=== PATIENT | female | born 1975 | race Two or more races ===

== ENCOUNTER 2018-02-03 16:01 | Emergency (ER) | payer MEDICAID ==
[~2018-02-03] VITALS: Ht 144.8 cm; Wt 73.9 kg
[2018-02-03] MEDS ORDERED: KETOROLAC 30 MG/1 ML ONE (16:56)
[2018-02-03] MEDS ORDERED: KETOROLAC 30 MG/1 ML IM ONE (17:00)
[2018-02-03 17:08] LABS: ALANINE AMINOTRANSFERASE 23 U/L (12-78); ALBUMIN 3.5 g/dL (3.4-5.0); CALCIUM 8.9 mg/dL (8.5-10.1); CHLORIDE 108 mmol/L (98-107); CREATININE 0.77 mg/dL (0.55-1.02)
[2018-02-03 17:12] LABS: ALKALINE PHOSPHATASE 62 U/L (45-117); ANION GAP 10 mmol/L (5-15); BILIRUBIN,TOTAL 0.3 mg/dL (0.2-1.0); TOTAL PROTEIN 7.7 g/dL (6.4-8.2)
[2018-02-03 17:17] LABS: MEAN CORPUSCULAR HEMOGLOBIN 21.6 pg (27.0-34.8); MEAN CORPUSCULAR HGB CONC 31.2 g/dL (32.4-35.8); MEAN CORPUSCULAR VOLUME 69.3 fL (80-100); MEAN PLATELET VOLUME 8.1 fL (7.4-10.4); PLATELET COUNT 592 x10^3/uL (130-400); RED BLOOD COUNT 4.38 x10^6/uL (3.82-5.3); RED CELL DISTRIBUTION WIDTH 19.1 % (9.6-15.2)
[2018-02-03 17:34] LABS: MD YES
[2018-02-03 17:34] LABS: MICROSCOPIC NOT IND
[2018-02-03 17:36] LABS: CULTURE INDICATED? NO
[2018-02-03 17:47] LABS: ANISOCYTOSIS 1+; BAND#(MANUAL) 0.09 x10^3/uL; BANDS%(MANUAL) 1 % (0-7); EOS#(MANUAL) 0.09 x10^3/uL (0.0-0.4); EOS% (MANUAL) 1 % (1-7); LYMPH#(MANUAL) 1.75 x10^3/uL (1-3.4); LYMPHS% (MANUAL) 19 % (22-44); MICROCYTOSIS 2+; MONOS#(MANUAL) 0.46 x10^3/uL (0.3-2.7); MONOS% (MANUAL) 5 % (2-9); REACTIVE LYMPHS # (MANUAL) 0.28 x10^3/uL (0-0); REACTIVE LYMPHS % (MANUAL) 3 % (0-0); SEG#(MANUAL) 6.53 x10^3/uL (1.8-6.8); SEGS% (MANUAL) 71 % (42-75)
[2018-02-03 17:48] LABS: HYPOCHROMIA 1+
[2018-02-03 17:49] LABS: <PLATELET ESTIMATE> INCREASED; LARGE PLATELETS 1+; OVALOCYTES 1+; TOXIC GRAN 1+
[2018-02-03 17:54] VITALS: BP 148/85
[2018-02-03] MEDS ORDERED: LISI-167 PO (17:54)
== END 2018-02-03 18:46 | disposition home or self-care (01) ==
LOC: ED 18:20
DX: R10.12 Left upper quadrant pain (principal); R10.32 Left lower quadrant pain; D50.9 Iron deficiency anemia, unspecified
CPT/HCPCS: 36415; 74021; 80053; 81003; 84703; 85025; 96372; 99285; J1885

== ENCOUNTER 2018-04-20 10:10 | Emergency (ER) | payer MEDICAID, OTHER ==
[~2018-04-20] VITALS: Ht 144.8 cm; Wt 74.7 kg
[~2018-04-20 10:10] MED LIST: LISI-167 PO
[2018-04-20 11:36] VITALS: BP 139/72
== END 2018-04-20 12:32 | disposition home or self-care (01) ==
LOC: ED 12:20
DX: K43.9 Ventral hernia without obstruction or gangrene (principal); R10.33 Periumbilical pain
CPT/HCPCS: 74176; 99284